=== PATIENT | male | born 1970 | race African-American/Black ===

== ENCOUNTER 2018-09-23 06:47 | Emergency (ER) | payer MEDICAID ==
[~2018-09-23] VITALS: Ht 175.3 cm; Wt 91.0 kg
[2018-09-23] MEDS ORDERED: IBUPROFEN 400MG TABLET PO ONE (07:30)
[2018-09-23 09:33] VITALS: BP 155/86
== END 2018-09-23 09:34 | disposition home or self-care (01) ==
LOC: ER 06:47
DX: S76.011A Strain of muscle, fascia and tendon of right hip, initial encounter (principal); Y93.01 Activity, walking, marching and hiking; V03.90XA Pedestrian on foot injured in collision with car, pick-up truck or van, unspecified whether traffic or nontraffic accident, initial encounter; I10 Essential (primary) hypertension; Y92.89 Other specified places as the place of occurrence of the external cause; E78.00 Pure hypercholesterolemia, unspecified; E11.9 Type 2 diabetes mellitus without complications; Z79.899 Other long term (current) drug therapy
CPT/HCPCS: 71045; 73502; 73552; 73590; 99283